=== PATIENT | female | born 1965 | race Caucasian/White ===

== ENCOUNTER 2017-11-02 06:24 | Emergency (ER) | payer OTHER ==
[2017-11-02] MEDS ORDERED: DEXAMETHASONE SOD PHOSPHATE 10 MG/1 ML VIAL IVPUSH ONE (06:30)
[2017-11-02 06:33] VITALS: BP 147/106; PULSE 116; TEMP 99.1; BMI 20.9
[2017-11-02] MEDS ORDERED: DEXAMETHASONE SOD PHOSPHATE 10 MG/1 ML VIAL IM ONE (06:34)
--- NOTE | 2017-11-02 06:34 | PDOC ---
History of Present Illness - General Chief Complaint: Pain, Acute Stated Complaint: SORE THROAT X 4 DAYS Time Seen by Provider: 11/02/17 06:30 History Source: Patient Exam Limitations: No Limitations - History of Present Illness Initial Comments: 11/02/17 06:31 This is a 52-year-old female who comes in complaining of 4 days of a sore throat. Patient had a Z-Grabiel at home that she started has taken the first 3 doses of. However patient said her throat is not getting better and so she came in for evaluation. Patient otherwise denies any fevers or chills. Patient denies any other symptoms or complaints. Patient had a friend recently with strep throat and was treated with a Z-Grabiel. So patient had an extra Z-Grabiel at home and decided to take it. PAST MEDICAL HISTORY: no significant history PAST SURGICAL HISTORY: no significant history FAMILY HISTORY: no pertinant history SOCIAL HISTORY: Pt lives with family and is employed. MEDICATIONS: reviewed ALLERGIES: As per nursing notes Review of Systems General: No fevers or chills, no weakness, no weight loss HEENT: No change in vision. + sore throat,. No ear pain CardioVascular: No chest pain or shortness of breath Respiratory:No cough, or wheezing. Gastrointestinal: no nausea, vomitting, diarrhea or constipation, No rectal bleeding Genitourinary: No dysuria, hematuria, or frequency Musculoskeletal: No joint or muscle pain or swelling Neurologic: No headache, vertigo, dizziness or loss of consciousness Psychiatric: nor depression Skin: No rashes or easy bruising Endocrine: no increased thirst or abnormal weight change Allergic: no skin or latex allergy All other systems reviewed and normal Exam: General: Well-nourished well-developed individual, no acute distress HEENT: Throat: Moderate erythema of the posterior oropharynx with enlargement of the tonsils and a small amount of exudate Neck: Supple, no meningeal signs there is bilateral submandibular lymphadenopathy Eyes::Pupils equal reactive and round, extraocular motion intact Chest: Nontender to palpation Cardiac: S1-S2 normal, regular rate and rhythm, no murmurs rubs or gallops Respiratory: Lungs clear to auscultation bilateral Abdomen: Soft, nondistended, normal bowel sounds, nontender to palpation diffusely Extremities: Warm, dry, no cyanosis, clubbing, or edema Skin: No rashes Neuro: Alert and oriented x3, CN II - XII intact, nonfocal exam with normal strength, normal sensation, normal reflexes, normal gait, Psych: Normal mood and affect nausea all like a spasm understanding kidney stone AND also Medical decision making this is a 52-year-old female with 4 days of a pharyngitis otherwise no fevers patient is completed 3 days of a five-day course of azithromycin. Patient otherwise is well-appearing and has no other associated symptoms. There is no evidence on my exam of peritonsillar abscess I will send a Monospot and give patient a dose of IM Decadron to help decrease inflammation and discomfort of her throat. Otherwise patient told to take Tylenol or Motrin for the pain. Call back tomorrow for the result of the mono test. I did tell her there is no medication for mono other than rest and symptomatic treatment. Past History - Past Medical History Allergies/Adverse Reactions: Allergies Allergy/AdvReac Type Severity Reaction Status Date / Time No Known Allergies Allergy Verified 11/02/17 06:28 Home Medications: Ambulatory Orders NK [No Known Home Medication] 11/02/17 *DC/Admit/Observation/Transfer Diagnosis at time of Disposition: Acute viral pharyngitis - Discharge Dispostion Disposition: HOME Condition at time of disposition: Stable Admit: No - Referrals - Patient Instructions Additional Instructions: Take Tylenol or Motrin as needed for pain. Continue the rest of the Z-Grabiel as prescribed. Call tomorrow [phone] for the result of the mono test. Return to the emergency department immediately with ANY new, persistent or worsening symptoms. Continue any medications as previously prescribed by your physician. You should follow up with your primary doctor as soon as possible regarding today's emergency department visit. . Please make sure your doctor reviews the results of your emergency evaluation. Thank you for coming to the Emergency Department today for your care. It was a pleasure to see you today. Please note that your evaluation is INCOMPLETE until you follow-up with your doctor. - Post Discharge Activity
[2017-11-02] MEDS ORDERED: DEXAMETHASONE SOD PHOSPHATE 10 MG/1 ML VIAL ONE (06:35)
== END 2017-11-02 06:53 | disposition home or self-care (01) ==
LOC: FER 06:24
PROC: 3E013GC Introduction of Other Therapeutic Substance into Subcutaneous Tissue, Percutaneous Approach (ICD-10-PCS; principal; 2017-11-02)
DX: J02.9 Acute pharyngitis, unspecified (principal); B97.89 Other viral agents as the cause of diseases classified elsewhere
CPT/HCPCS: 36415; 86308; 99281-25; J1100